=== PATIENT | male | born 1995 | race Caucasian/White ===

== ENCOUNTER 2018-12-06 12:24 | Emergency (ER) | payer OTHER ==
[2018-12-06 12:36] VITALS: RESP 18
[2018-12-06] MEDS ORDERED: PANTOPRAZOLE 40 MG/10 ML VIAL IVP STA (13:01)
[2018-12-06] MEDS ORDERED: ONDANSETRON 4 MG/2 ML VIAL IVP STA (13:01)
[2018-12-06] MEDS ORDERED: SODIUM CHLORIDE 0.9% 500 ML 500 ML IV STA (13:01)
--- NOTE | 2018-12-06 13:13 | ED ---
General Adult HPI - General Chief complaint: Abdominal Pain Stated complaint: abd pain Time Seen by Provider: 12/06/18 12:35 Source: patient, RN notes reviewed Mode of arrival: ambulatory Limitations: no limitations - History of Present Illness Initial comments: This is a 23-year-old male who presents emergency Department complaining of abdominal pain. Patient states she's had diarrhea for approximate one month. Patient states it is not are day. Patient states over the last 2 days he's been vomiting multiple times during the day. Patient also complains of epigastric abdominal pain. Patient states he's had no abdominal surgeries. Patient denies any recent drinking. Patient denies any chest pain difficult breathing shortest breath per patient denies any fever chills per patient denies any blood in the vomitus or in the stool. Patient denies any fevers. Patient does not have a primary medical care doctor. - Related Data Home Medications Medication Instructions Recorded Confirmed Famotidine [Pepcid AC] 10 mg PO DAILY 12/06/18 12/06/18 Allergies Allergy/AdvReac Type Severity Reaction Status Date / Time quetiapine [From Seroquel] AdvReac SEIZURE Verified 12/06/18 12:55 Review of Systems ROS Statement: Those systems with pertinent positive or pertinent negative responses have been documented in the HPI. ROS Other: All systems not noted in ROS Statement are negative. Past Medical History Past Medical History: Seizure Disorder History of Any Multi-Drug Resistant Organisms: MRSA Date of last positivie culture/infection: 2014 MDRO Source:: buttocks Past Surgical History: No Surgical Hx Reported Past Psychological History: Anxiety, Bipolar, Depression Smoking Status: Current every day smoker Past Alcohol Use History: None Reported Past Drug Use History: None Reported General Exam - General Exam Comments Initial Comments: GENERAL: Patient is well-developed and well-nourished. Patient is nontoxic and well- hydrated and is in mild distress. ENT: Neck is soft and supple. No significant lymphadenopathy is noted. Oropharynx is clear. Moist mucous membranes. Neck has full range of motion without eliciting any pain. EYES: The sclera were anicteric and conjunctiva were pink and moist. Extraocular movements were intact and pupils were equal round and reactive to light. Eyelids were unremarkable. PULMONARY: Unlabored respirations. Good breath sounds bilaterally. No audible rales rhonchi or wheezing was noted. CARDIOVASCULAR: There is a regular rate and rhythm without any murmurs gallops or rubs. ABDOMEN: Mild epigastric abdominal pain no rebound or guarding. No palpable organomegaly was noted. There is no palpable pulsatile mass. SKIN: Skin is clear with no lesions or rashes and otherwise unremarkable. NEUROLOGIC: Patient is alert and oriented x3. Cranial nerves II through XII are grossly intact. Motor and sensory are also intact. Normal speech, volume and content. Symmetrical smile. MUSCULOSKELETAL: Normal extremities with adequate strength and full range of motion. No lower extremity swelling or edema. No calf tenderness. LYMPHATICS: No significant lymphadenopathy is noted PSYCHIATRIC: Normal psychiatric evaluation. Limitations: no limitations Course Vital Signs 12/06/18 12:33 Temperature 98.1 F Pulse Rate 70 Respiratory 18 Rate Blood Pressure 117/77 O2 Sat by Pulse 98 Oximetry Medical Decision Making - Medical Decision Making Ultrasound showed no signs of acute cholecystitis - Lab Data Result diagrams: 12/06/18 13:15 12/06/18 13:15 Lab Results 12/06/18 12/06/18 12/06/18 Range/Units 13:15 13:15 13:43 WBC 16.6 H (3.8-10.6) k/uL RBC 5.63 (4.30-5.90) m/uL Hgb 17.0 (13.0-17.5) gm/dL Hct 51.6 (39.0-53.0) % MCV 91.7 (80.0-100.0) fL MCH 30.2 (25.0-35.0) pg MCHC 32.9 (31.0-37.0) g/dL RDW 13.6 (11.5-15.5) % Plt Count 170 (150-450) k/uL Neutrophils % 88 % Lymphocytes % 6 % Monocytes % 3 % Eosinophils % 1 % Basophils % 0 % Neutrophils # 14.6 H (1.3-7.7) k/uL Lymphocytes # 1.1 (1.0-4.8) k/uL Monocytes # 0.5 (0-1.0) k/uL Eosinophils # 0.2 (0-0.7) k/uL Basophils # 0.1 (0-0.2) k/uL Sodium 139 (137-145) mmol/L Potassium 4.2 (3.5-5.1) mmol/L Chloride 104 (98-107) mmol/L Carbon Dioxide 23 (22-30) mmol/L Anion Gap 12 mmol/L BUN 14 (9-20) mg/dL Creatinine 1.06 (0.66-1.25) mg/dL Est GFR (CKD-EPI)AfAm >90 (>60 ml/min/1.73 sqM) Est GFR (CKD-EPI)NonAf >90 (>60 ml/min/1.73 sqM) Glucose 92 (74-99) mg/dL Calcium 10.3 H (8.4-10.2) mg/dL Total Bilirubin 1.1 (0.2-1.3) mg/dL AST 41 (17-59) U/L ALT 38 (21-72) U/L Alkaline Phosphatase 74 (38-126) U/L Total Protein 8.1 (6.3-8.2) g/dL Albumin 5.1 H (3.5-5.0) g/dL Amylase 59 (30-110) U/L Lipase 73 (23-300) U/L Urine Color Yellow Urine Appearance Clear (Clear) Urine pH 6.0 (5.0-8.0) Ur Specific [place] 1.012 (1.001-1.035) Urine Protein Negative (Negative) Urine Glucose (UA) Negative (Negative) Urine Ketones Trace H (Negative) Urine Blood Negative (Negative) Urine Nitrite Negative (Negative) Urine Bilirubin Negative (Negative) Urine Urobilinogen <2.0 (<2.0) mg/dL Ur Leukocyte Esterase Negative (Negative) Disposition Clinical Impression: Epigastric abdominal pain Disposition: HOME SELF-CARE Instructions (If sedation given, give patient instructions): Abdominal Pain (ED) Additional Instructions: Patient should take Pepcid twice a day Patient should follow-up with a primary medical care doctor. Is patient prescribed a controlled substance at d/c from ED?: No Referrals: None,Stated [Primary Care Provider] - 1-2 days Time of Disposition: 15:53
[2018-12-06 13:31] LABS: Basophils # (A) 0.1 k/uL (0-0.2); Basophils % (A) 0 %; Eosinophils # (A) 0.2 k/uL (0-0.7); Eosinophils % (A) 1 %; HCT 51.6 % (39.0-53.0); Lymphocytes # (A) 1.1 k/uL (1.0-4.8); Lymphocytes % (A) 6 %; MCH 30.2 pg (25.0-35.0); MCHC 32.9 g/dL (31.0-37.0); MCV 91.7 fL (80.0-100.0); Mean Platelet Volume 8.8; Monocytes # (A) 0.5 k/uL (0-1.0); Monocytes % (A) 3 %; Neutrophils # (A) 14.6 k/uL (1.3-7.7); Neutrophils % (A) 88 %; Platelet Count 170 k/uL (150-450); RBC 5.63 m/uL (4.30-5.90); RDW 13.6 % (11.5-15.5); WBC 16.6 k/uL (3.8-10.6)
[2018-12-06 13:41] LABS: ALT 38 U/L (21-72); AST 41 U/L (17-59); Albumin 5.1 g/dL (3.5-5.0); Alkaline Phosphatase 74 U/L (38-126); Amylase 59 U/L (30-110); Anion Gap 12 mmol/L; Blood Urea Nitrogen 14 mg/dL (9-20); Calcium 10.3 mg/dL (8.4-10.2); Carbon Dioxide 23 mmol/L (22-30); Chloride 104 mmol/L (98-107); Glucose 92 mg/dL (74-99); Lipase 73 U/L (23-300); Potassium 4.2 mmol/L (3.5-5.1); Sodium 139 mmol/L (137-145); Total Bilirubin 1.1 mg/dL (0.2-1.3); Total Protein 8.1 g/dL (6.3-8.2)
--- NOTE | 2018-12-06 14:05 | XR ---
EXAMINATION TYPE: XR KUB DATE OF EXAM: 12/06/2018 2:02 PM CLINICAL HISTORY: Abdominal pain for one month. Recent vomiting. TECHNIQUE: Two Upright KUB images of the abdomen are obtained. COMPARISON: None. FINDINGS: Gas is seen in nondistended stomach. Scattered gas is seen in non-distended small bowel loo ps. Gas and fecal material is seen in non-distended colon. There is no visceromegaly, pneumoperitoneu m, or abnormal calcification appreciated. The lung bases are clear and the osseous structures are int act. IMPRESSION: Overall nonobstructive bowel gas pattern.
[2018-12-06 14:10] LABS: Appearance,Urine Clear (Clear); Bilirubin,Urine Negative (Negative); Blood,Urine Negative (Negative); Color,Urine Yellow; Glucose,Urine (UA) Negative (Negative); Ketones,Urine Trace (Negative); Leukocyte Esterase,Urine Negative (Negative); Nitrite,Urine Negative (Negative); Protein,Urine Negative (Negative); Specific Gravity,Urine 1.012 (1.001-1.035); Urobilinogen,Urine <2.0 mg/dL (<2.0)
--- NOTE | 2018-12-06 15:34 | US ---
EXAMINATION TYPE: US gallbladder DATE OF EXAM: 12/06/2018 COMPARISON: NONE CLINICAL HISTORY: Pain. abd pain with N/V EXAM MEASUREMENTS: Liver Length: 14.7 cm Gallbladder Wall: 0.2 cm CBD: 0.4 cm Right Kidney: 10.5 x 5.5 x 6.4 cm Pancreas: not seen due to bowel gas Liver: wnl Gallbladder: once rolled LLD some internal debris noted in addition to a small nondependent nonshado wing anterior wall polyp = 0.4cm Evidence for sonographic Mixon's sign: no, but got meds for pain CBD: wnl Right Kidney: wnl IMPRESSION: 1. Nondependent 4 mm gallbladder polyp. Annual surveillance is recommended for polyps of ascites. No sonographic evidence of acute cholecystitis. Minimal biliary sludge. 2. Pancreas is not visualized due to overlying bowel gas.
[2018-12-06 16:15] VITALS: BP 115/79; PULSE 71; TEMP 98.8
== END 2018-12-06 16:14 | disposition home or self-care (01) ==
LOC: EC 12:24
DX: R10.13 Epigastric pain (principal); R19.7 Diarrhea, unspecified; R11.10 Vomiting, unspecified; F17.200 Nicotine dependence, unspecified, uncomplicated; Z79.899 Other long term (current) drug therapy; Z88.8 Allergy status to other drugs, medicaments and biological substances
CPT/HCPCS: 36415; 80053; 82150; 83690; 85025; 81003; 74018; 76705; 99284; 96374; 96375; 96361; J2405; C9113

== ENCOUNTER 2019-01-02 15:55 | Emergency (ER) | payer OTHER ==
[2019-01-02 16:04] VITALS: BP 138/70; PULSE 88; RESP 18; TEMP 98.4
--- NOTE | 2019-01-02 16:16 | ED ---
Back Pain HPI - General Chief Complaint: Back Pain/Injury Stated Complaint: back pain Time Seen by Provider: 01/02/19 16:04 Source: patient, RN notes reviewed Limitations: no limitations - History of Present Illness Initial Comments: 23-year-old male presents emergency Department with chief complaint of low back pain. Patient states he is lifting her fridge yesterday. Pole in his right low back. He denies any bowel bladder incontinence or retention. He states the pain is better when he lays on his stomach. He denies any pain that radiates into his lower extremities denies any paresthesias. Patient states that he's had problems with the past. He did take some Tylenol Motrin last night and this morning. Denies any topical products no heat or ice - Related Data Home Medications Medication Instructions Recorded Confirmed Famotidine [Pepcid AC] 10 mg PO DAILY 12/06/18 12/06/18 Previous Rx's Medication Instructions Recorded Cyclobenzaprine [Flexeril] 10 mg PO TID PRN #15 tab 01/02/19 Ibuprofen [Motrin] 800 mg PO Q6HR #30 tab 01/02/19 Allergies Allergy/AdvReac Type Severity Reaction Status Date / Time quetiapine [From Seroquel] AdvReac SEIZURE Verified 01/02/19 16:04 Review of Systems ROS Statement: Those systems with pertinent positive or pertinent negative responses have been documented in the HPI. ROS Other: All systems not noted in ROS Statement are negative. Past Medical History Past Medical History: Seizure Disorder History of Any Multi-Drug Resistant Organisms: MRSA Date of last positivie culture/infection: 2014 MDRO Source:: buttocks Past Surgical History: No Surgical Hx Reported Past Psychological History: Anxiety, Bipolar, Depression Smoking Status: Current every day smoker Past Alcohol Use History: None Reported Past Drug Use History: None Reported General Exam Limitations: no limitations General appearance: alert, in no apparent distress Head exam: Present: atraumatic, normocephalic, normal inspection Eye exam: Present: normal appearance, PERRL, EOMI. Absent: scleral icterus, conjunctival injection, periorbital swelling ENT exam: Present: normal exam, normal oropharynx, mucous membranes moist Neck exam: Present: normal inspection, full ROM. Absent: tenderness, meningismus, lymphadenopathy Respiratory exam: Present: normal lung sounds bilaterally. Absent: respiratory distress, wheezes, rales, rhonchi, stridor Cardiovascular Exam: Present: regular rate, normal rhythm, normal heart sounds. Absent: systolic murmur, diastolic murmur, rubs, gallop, clicks GI/Abdominal exam: Present: soft, normal bowel sounds. Absent: distended, tenderness, guarding, rebound, rigid Extremities exam: Present: other (Bilateral lower extremity strength equal neurovascular intact) Back exam: Present: full ROM (Mild discomfort), tenderness (Right lower lumbar), paraspinal tenderness. Absent: vertebral tenderness Neurological exam: Present: alert, oriented X3, CN II-XII intact, reflexes normal. Absent: motor sensory deficit Skin exam: Present: warm, dry, intact, normal color. Absent: rash Course Vital Signs 01/02/19 16:03 Temperature 98.4 F Pulse Rate 88 Respiratory 18 Rate Blood Pressure 138/70 O2 Sat by Pulse 99 Oximetry Medical Decision Making - Medical Decision Making 23-year-old male presented for low back pain. Patient is a lumbar strain he has no red flag symptoms neurologically intact. Patient will be discharged. Return parameters were discussed Disposition Clinical Impression: Strain of lumbar region Disposition: HOME SELF-CARE Condition: Stable Instructions (If sedation given, give patient instructions): Acute Low Back Pain (ED) Additional Instructions: Please return to the Emergency Department if symptoms worsen or any other concerns. Prescriptions: Cyclobenzaprine [Flexeril] 10 mg PO TID PRN #15 tab PRN Reason: Muscle Spasm Ibuprofen [Motrin] 800 mg PO Q6HR #30 tab Is patient prescribed a controlled substance at d/c from ED?: No Referrals: None,Stated [Primary Care Provider] - 1-2 days Time of Disposition: 16:16
== END 2019-01-02 16:20 | disposition home or self-care (01) ==
LOC: EC 15:55
DX: S39.012A Strain of muscle, fascia and tendon of lower back, initial encounter (principal); F17.200 Nicotine dependence, unspecified, uncomplicated; Z86.14 Personal history of Methicillin resistant Staphylococcus aureus infection; Z79.899 Other long term (current) drug therapy; Z88.8 Allergy status to other drugs, medicaments and biological substances; X50.0XXA Overexertion from strenuous movement or load, initial encounter
CPT/HCPCS: 99283

== ENCOUNTER 2019-04-19 10:59 | Emergency (ER) | payer MEDICARE, OTHER ==
[2019-04-19 11:06] VITALS: BP 114/70; RESP 16; TEMP 98
[2019-04-19] MEDS ORDERED: DEXAMETHASONE SOD PHOSPHATE 10 MG/ML 1 ML VIAL IM STA (11:52)
[2019-04-19] MEDS ORDERED: ACETAMINOPHEN TAB 500 MG TAB PO STA (11:52)
[2019-04-19] MEDS ORDERED: IPRATROPIUM-ALBUTEROL 3 ML NEB INHALATION STA (11:52)
[2019-04-19] MEDS ORDERED: IBUPROFEN 800 MG TAB PO STA (11:52)
[2019-04-19 12:18] VITALS: PULSE 81
--- NOTE | 2019-04-19 12:25 | ED ---
URI HPI - General Chief Complaint: Upper Respiratory Infection Stated Complaint: Chest cold Time Seen by Provider: 04/19/19 11:15 Source: patient, RN notes reviewed, old records reviewed Mode of arrival: ambulatory Limitations: no limitations - History of Present Illness Initial Comments: This is a 24-year-old male presents today for evaluation of cough sore throat difficulty breathing. Patient states he has recent sick contact in his brother who was diagnosed bronchitis. Patient has had fever and chills. Otherwise no travel history. No significant medical history takes no medications. Patient is a smoker. Denying current chest pain. No nausea vomiting no diarrhea. MD Complaint: fever, cough, sore throat -: days(s) Severity: moderate Severity scale (1-10): 6 Quality: sharp Consistency: intermittent Improves With: nothing Worsens With: deep breaths Context: sick contacts Associated Symptoms: fever, chills, nasal congestion, sore throat, cough, hoarseness Treatments Prior to Arrival: none - Related Data Home Medications Medication Instructions Recorded Confirmed D-Methorphan/PE/Acetaminophen 1 cap PO Q12H PRN 04/19/19 04/19/19 [Mucinex Fast-Max Congest-Head] Dm/PE/Acetaminophen/Doxylamine 2 tab PO DAILY PRN 04/19/19 04/19/19 [Akila-[place] Plus Day-Night Cp] Ibuprofen [Motrin] 800 mg PO Q6HR PRN 04/19/19 04/19/19 Allergies Allergy/AdvReac Type Severity Reaction Status Date / Time quetiapine [From Seroquel] AdvReac SEIZURE Verified 04/19/19 11:13 Review of Systems ROS Statement: Those systems with pertinent positive or pertinent negative responses have been documented in the HPI. ROS Other: All systems not noted in ROS Statement are negative. Past Medical History Past Medical History: Seizure Disorder History of Any Multi-Drug Resistant Organisms: MRSA Date of last positivie culture/infection: 2014 MDRO Source:: buttocks Past Surgical History: No Surgical Hx Reported Past Psychological History: ADD/ADHD, Anxiety, Bipolar, Depression Smoking Status: Current every day smoker Past Alcohol Use History: Occasional Past Drug Use History: Marijuana General Exam Limitations: no limitations General appearance: alert, in no apparent distress Head exam: Present: atraumatic, normocephalic, normal inspection Eye exam: Present: normal appearance, EOMI. Absent: scleral icterus, conjunctival injection, periorbital swelling ENT exam: Present: normal exam, mucous membranes moist. Absent: normal oropharynx (Patient's oropharynx does have erythema with exudate bilaterally) Neck exam: Present: normal inspection. Absent: tenderness, meningismus, lymphadenopathy Respiratory exam: Present: wheezes (Diffuse wheezing). Absent: respiratory distress, rales, rhonchi, stridor Cardiovascular Exam: Present: regular rate, normal rhythm, normal heart sounds. Absent: systolic murmur, diastolic murmur, rubs, gallop, clicks GI/Abdominal exam: Present: soft, normal bowel sounds. Absent: distended, tenderness, guarding, rebound, rigid Extremities exam: Present: normal inspection, full ROM, normal capillary refill. Absent: tenderness, pedal edema, joint swelling, calf tenderness Back exam: Present: normal inspection Neurological exam: Present: alert, oriented X3, CN II-XII intact Psychiatric exam: Present: normal affect, normal mood Skin exam: Present: warm, dry, intact, normal color. Absent: rash Course Vital Signs 04/19/19 04/19/19 04/19/19 11:03 12:09 12:18 Temperature 98.0 F Pulse Rate 101 H 79 81 Respiratory 16 Rate Blood Pressure 114/70 O2 Sat by Pulse 97 Oximetry - Reevaluation(s) Reevaluation #1: 04/19/19 12:24 Medical records reviewed Reevaluation #2: 04/19/19 12:24 Symptoms improved with medication here in the ER Medical Decision Making - Medical Decision Making 84 male with clinical strep throat also with upper respiratory infection we'll place on antibiotics, x-rays clear for pneumonia. Patient can be discharged home - Radiology Data Radiology results: report reviewed (Chest x-rays negative for acute disease, no pneumonia noted. No mass or infiltrate), image reviewed Disposition Clinical Impression: Upper respiratory tract infection, Pharyngitis Disposition: HOME SELF-CARE Condition: Good Instructions (If sedation given, give patient instructions): Upper Respiratory Infection (ED), Pharyngitis (ED) Is patient prescribed a controlled substance at d/c from ED?: No Referrals: None,Stated [Primary Care Provider] - 1-2 days
--- NOTE | 2019-04-19 12:44 | XR ---
EXAMINATION TYPE: XR chest 2V DATE OF EXAM: 04/19/2019 COMPARISON: NONE HISTORY: Cough TECHNIQUE: Frontal and lateral views of the chest are obtained. FINDINGS: There is no focal air space opacity, pleural effusion, or pneumothorax seen. Slight right hemidiaphragm elevation, a common finding that may be physiologic. The cardiac silhouette size is wi thin normal limits. The osseous structures are intact. IMPRESSION: No acute cardiopulmonary process.
== END 2019-04-19 13:15 | disposition home or self-care (01) ==
LOC: EC 10:59
DX: J06.9 Acute upper respiratory infection, unspecified (principal); J02.9 Acute pharyngitis, unspecified; F17.200 Nicotine dependence, unspecified, uncomplicated; Z88.8 Allergy status to other drugs, medicaments and biological substances; Z86.14 Personal history of Methicillin resistant Staphylococcus aureus infection
CPT/HCPCS: 94640; 71046; 99284; 96372; J1100

== ENCOUNTER 2019-05-01 13:00 | Emergency (ER) | payer MEDICARE ==
[2019-05-01 13:17] VITALS: TEMP 97.9
--- NOTE | 2019-05-01 13:54 | ED ---
Head Injury HPI - General Chief complaint: Head Injury Stated complaint: head injury/poss seizures Time Seen by Provider: 05/01/19 13:22 Source: patient, RN notes reviewed, old records reviewed Mode of arrival: wheelchair Limitations: no limitations - History of Present Illness Initial comments: This is a 24-year-old male to ER for evaluation. Patient resents today for evaluation regards to headache. Headache occurred of hitting himself in the head with a hammer he then hit his head on the ground because he became weak and lightheaded. Patient complaining of continued headache is a mild abrasion above left eyebrow are moist and he may have lost consciousness. Patient currently awake and alert states that he is having a pounding headache unable to go to work today. No blood thinners. He does have history of seizures no seizure activity. MD Complaint: head injury, head pain -: hour(s) Mechanism of Injury: unsure Location: frontal, occipital (left forehead abrasion) Loss of Consciousness: yes Previous Trauma to this Area: No Place: home Radiation: none Severity: moderate Consistency: constant Provoking factors: none known Associated Symptoms: syncope (Presyncopal event since injury) - Related Data Home Medications Medication Instructions Recorded Confirmed No Known Home Medications 05/01/19 05/01/19 Allergies/Adverse reactions: Allergies Allergy/AdvReac Type Severity Reaction Status Date / Time quetiapine [From Seroquel] AdvReac SEIZURE Verified 05/01/19 13:59 Review of Systems ROS Statement: Those systems with pertinent positive or pertinent negative responses have been documented in the HPI. ROS Other: All systems not noted in ROS Statement are negative. Past Medical History Past Medical History: Seizure Disorder History of Any Multi-Drug Resistant Organisms: MRSA Date of last positivie culture/infection: 2014 MDRO Source:: buttocks Past Surgical History: No Surgical Hx Reported Past Psychological History: ADD/ADHD, Anxiety, Bipolar, Depression Smoking Status: Current every day smoker Past Alcohol Use History: Occasional Past Drug Use History: Marijuana General Exam Limitations: no limitations General appearance: alert, in no apparent distress Head exam: Present: normocephalic, normal inspection. Absent: atraumatic (Left forehead abrasion) Eye exam: Present: normal appearance, PERRL, EOMI. Absent: scleral icterus, conjunctival injection, periorbital swelling ENT exam: Present: normal exam, mucous membranes moist Neck exam: Present: normal inspection. Absent: tenderness, meningismus, lymphadenopathy Respiratory exam: Present: normal lung sounds bilaterally. Absent: respiratory distress, wheezes, rales, rhonchi, stridor Cardiovascular Exam: Present: regular rate, normal rhythm, normal heart sounds. Absent: systolic murmur, diastolic murmur, rubs, gallop, clicks GI/Abdominal exam: Present: soft, normal bowel sounds. Absent: distended, tenderness, guarding, rebound, rigid Extremities exam: Present: normal inspection, full ROM, normal capillary refill. Absent: tenderness, pedal edema, joint swelling, calf tenderness Back exam: Present: normal inspection Neurological exam: Present: alert, oriented X3, CN II-XII intact Psychiatric exam: Present: normal affect, normal mood Skin exam: Present: warm, dry, intact, normal color. Absent: rash Course Vital Signs 05/01/19 13:13 Temperature 97.9 F Pulse Rate 74 Respiratory 20 Rate Blood Pressure 92/63 O2 Sat by Pulse 99 Oximetry - Reevaluation(s) Reevaluation #1: 05/01/19 13:54 Records reviewed Reevaluation #2: 05/01/19 13:54 One syncopal event here in the ER complaining of headache Medical Decision Making - Medical Decision Making 24 male the ER with head injury. CT brain C-spine and facial bones negative for traumatic injury patient can be discharged - Radiology Data Radiology results: report reviewed (CT brain C-spine fracture was negative for acute disease), image reviewed Disposition Clinical Impression: Closed head injury Disposition: HOME SELF-CARE Condition: Good Instructions (If sedation given, give patient instructions): Concussion (ED) Is patient prescribed a controlled substance at d/c from ED?: No Referrals: None,Stated [Primary Care Provider] - 1-2 days
--- NOTE | 2019-05-01 14:43 | CT ---
EXAMINATION TYPE: CT facial bones wo con DATE OF EXAM: 05/01/2019 COMPARISON: HISTORY: Head injury; possible seizures CT DLP: 829.8 mGycm Automated exposure control for dose reduction was used. TECHNIQUE: CT scan of the sinuses is performed without contrast, axial images are obtained, coronal r eformatted images are also reviewed. FINDINGS: There is near complete opacification of the right maxillary sinus and moderate mucosal thic kening of the left maxillary sinus that is severe. Severe mucosal thickening is also seen in the ethm oid sinuses and moderate of the frontal sinuses. There is severe mucosal thickening with inspissated secretions of the sphenoid sinus. Air-fluid levels within all sinuses are indicative of an acute comp onent. Mild leftward nasal septal deviation is seen. Mastoid air cells are well aerated. No mucoperio steal thickening is identified. No acute displaced facial bone fracture is seen. The nasal bone and n eusebio septum appear intact as do the zygomatic arches. Visualized portions of the brain will be discus sed in the CT brain dictation of the same date. Globes maintain a normal rounded morphology. Lenses a re in place. No pre or post septal soft tissue swelling. IMPRESSION: 1. No acute displaced facial bone fracture. 2. Severe pansinusitis with air-fluid levels indicating an acute component.
--- NOTE | 2019-05-01 14:46 | CT ---
EXAMINATION TYPE: CT brain abe wo con DATE OF EXAM: 05/01/2019 COMPARISON: None HISTORY: 24-year-old male Head injury; possible seizures CT DLP: 829.8 mGycm Automated exposure control for dose reduction was used. Technique: Examination of the head was done in axial plane without intravenous contrast. Coronal and sagittal reconstructions performed. CT of the cervical spine was obtained in axial plane without intravenous injection of contrast mater ial. Coronal and sagittal reformatted images were obtained from the axial views for evaluation of f ractures, spinal alignment and canal. FINDINGS: Head: There is no evidence of acute intracranial hemorrhage, acute ischemic changes, mass, mass-effect, or extra-axial fluid collection. There is no effacement of cerebral sulci or basal subarachnoid cister ns. There is no hydrocephalus. There is no midline shift. Murguia-white matter distinction is preserv ed. Prominent paranasal sinus opacification. Facial bones reported separately. Mastoid air cells appear w ell-pneumatized high riding right jugular bulb. No calvarial fracture. Cervical spine: The alignment of the cervical spine is normal on coronal and reformatted images. There is no cranial vertebral abnormality. Fracture of the cervical spine is not seen. Assessment of the spinal canal fro m C7-T1 and below is limited due to artifact from the patient's shoulders. Otherwise, no evidence of focal disk herniation. There is no central spinal canal stenosis. Sagittal and coronal reformatted images confirm above findings. COMBINED IMPRESSION: 1. No acute intracranial abnormality seen. 2. For acute fracture or malalignment of the cervical spine. 3. Facial bones reported separately.
[2019-05-01 16:14] VITALS: BP 110/60; PULSE 63; RESP 16
== END 2019-05-01 16:12 | disposition home or self-care (01) ==
LOC: EC 13:00
DX: S00.81XA Abrasion of other part of head, initial encounter (principal); F17.200 Nicotine dependence, unspecified, uncomplicated; Z88.8 Allergy status to other drugs, medicaments and biological substances; Z86.14 Personal history of Methicillin resistant Staphylococcus aureus infection; W22.8XXA Striking against or struck by other objects, initial encounter; W01.0XXA Fall on same level from slipping, tripping and stumbling without subsequent striking against object, initial encounter; Y92.009 Unspecified place in unspecified non-institutional (private) residence as the place of occurrence of the external cause
CPT/HCPCS: 70450; 70486; 72125; 99284

== ENCOUNTER 2019-07-15 20:48 | Emergency (ER) | payer MEDICARE, OTHER ==
[2019-07-15 21:02] VITALS: BP 130/76; PULSE 91; RESP 20; TEMP 98.1
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
--- NOTE | 2019-07-15 21:29 | XR ---
EXAMINATION TYPE: XR hand complete RT DATE OF EXAM: 07/15/2019 COMPARISON: NONE HISTORY: Pain and swelling TECHNIQUE: 3 views FINDINGS: There is some deformity of the fifth metacarpal consistent with an old fracture. I see no a cute fracture nor dislocation. Joint spaces are fairly normal. IMPRESSION: No acute abnormality of the right hand.
== END 2019-07-15 22:14 | disposition home or self-care (01) ==
LOC: EC 20:48
DX: S69.91XA Unspecified injury of right wrist, hand and finger(s), initial encounter (principal); L30.9 Dermatitis, unspecified; F17.200 Nicotine dependence, unspecified, uncomplicated; Z88.8 Allergy status to other drugs, medicaments and biological substances; W22.03XA Walked into furniture, initial encounter
CPT/HCPCS: 99283

== ENCOUNTER 2020-01-08 14:36 | Emergency (ER) | payer SELFPAY ==
[2020-01-08 14:39] VITALS: RESP 16; TEMP 98.2
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
--- NOTE | 2020-01-08 15:34 | XR ---
Chest x-ray with right RIBS HISTORY: Rib pain, trauma Frontal view of the chest, 4 views of the right ribs are submitted. Correlation to prior chest x-ray 04/19/2019 Chest x-ray is stable, there is no pneumothorax or pleural effusion. Heart is stable. There is no lanette dent displaced rib fracture. No evident airspace disease. IMPRESSION: No acute abnormality. Bone scan could be performed for increased sensitivity as indicated .
[2020-01-08] MEDS ORDERED: KETOROLAC 30 MG/ML 1 ML VIAL IM STA (15:40)
[2020-01-08 16:20] VITALS: BP 108/65; PULSE 97
== END 2020-01-08 16:20 | disposition home or self-care (01) ==
LOC: EC 14:36
DX: S39.011A Strain of muscle, fascia and tendon of abdomen, initial encounter (principal); R11.0 Nausea; F17.200 Nicotine dependence, unspecified, uncomplicated; Z88.8 Allergy status to other drugs, medicaments and biological substances; Z86.14 Personal history of Methicillin resistant Staphylococcus aureus infection; X50.0XXA Overexertion from strenuous movement or load, initial encounter
CPT/HCPCS: 71101; 96372; 99284; J1885

== ENCOUNTER 2020-03-24 19:39 | Emergency (ER) | payer MEDICARE ==
[2020-03-24 19:49] VITALS: PULSE 92; RESP 20; TEMP 98.1
--- NOTE | 2020-03-24 19:53 | ED ---
Male Urogenital HPI - General Chief complaint: Urogenital Stated complaint: urogenital Time Seen by Provider: 03/24/20 19:53 Source: patient, family Mode of arrival: ambulatory Limitations: no limitations - History of Present Illness Initial comments: Patient a 25-year-old male presenting to emergency with chief complaint of testicular pain. Patient states this started several days ago with gradual increase in severity. Patient reports most of his testicles feel "heavy". He denies any testicular enlargement, erythema, penile discharge. Patient denies any dysuria, increased urgency or frequency. Denies any abdominal pain, nausea or vomiting. Denies hematuria, hematochezia or melena. Denies any back and chest pain. Denies any concerns for STDs. Denies night sweats or chills. - Related Data Home Medications Medication Instructions Recorded Confirmed Acetaminophen Tab [Tylenol] 975 mg PO Q4H PRN 01/08/20 01/08/20 Ibuprofen [Motrin Ib] 400 mg PO Q8H PRN 01/08/20 01/08/20 Previous Rx's Medication Instructions Recorded Acetaminophen Tab [Tylenol Tab] 500 mg PO Q6H PRN #30 tablet 03/24/20 Ibuprofen [Motrin] 800 mg PO Q6HR #30 tab 03/24/20 Allergies Allergy/AdvReac Type Severity Reaction Status Date / Time quetiapine [From Seroquel] AdvReac SEIZURE Verified 03/24/20 19:48 Review of Systems ROS Statement: Those systems with pertinent positive or pertinent negative responses have been documented in the HPI. ROS Other: All systems not noted in ROS Statement are negative. Past Medical History Past Medical History: Seizure Disorder Additional Past Medical History / Comment(s): hernia History of Any Multi-Drug Resistant Organisms: MRSA Date of last positivie culture/infection: 2014 MDRO Source:: buttocks Past Surgical History: No Surgical Hx Reported Past Psychological History: ADD/ADHD, Anxiety, Bipolar, Depression Smoking Status: Current every day smoker Past Alcohol Use History: Occasional Past Drug Use History: Marijuana General Exam Limitations: no limitations General appearance: alert, in no apparent distress Head exam: Present: atraumatic, normocephalic, normal inspection Eye exam: Present: normal appearance, PERRL, EOMI Pupils: Present: normal accommodation ENT exam: Present: normal exam, normal oropharynx, mucous membranes moist Neck exam: Present: normal inspection, full ROM. Absent: tenderness Respiratory exam: Present: normal lung sounds bilaterally. Absent: respiratory distress, wheezes Cardiovascular Exam: Present: regular rate, normal rhythm, normal heart sounds GI/Abdominal exam: Present: soft. Absent: distended, tenderness exam: Present: normal inspection, testicular tenderness (Bilateral testicular tenderness), circumcision. Absent: urethral discharge, scrotal swelling, other (Negative Prehn sign) Extremities exam: Present: normal inspection, full ROM. Absent: tenderness Back exam: Present: normal inspection, full ROM. Absent: tenderness, CVA tenderness (R), CVA tenderness (L) Neurological exam: Present: alert, oriented X3 Psychiatric exam: Present: normal affect, normal mood Skin exam: Present: warm, dry, intact, normal color Course Vital Signs 03/24/20 19:45 Temperature 98.1 F Pulse Rate 92 Respiratory 20 Rate Blood Pressure 110/73 O2 Sat by Pulse 99 Oximetry Medical Decision Making - Medical Decision Making Patient is 25-year-old male presenting to emergency department with chief complaint of testicular pain. Exam patient is a bilateral testicular and wrist with no signs of erythema or swelling. No significant findings on the penis. Ultrasound of the scrotum reveals no significant findings. UA did reveal elevated red blood cells and moderate amounts of blood in the urine. Subsequently, a KUB was ordered which showed no findings of a renal stone. He does not have any flank tenderness. Patient was advised to follow-up with a urologist. He will be discharged with Tylenol or Motrin for pain control. Strict return parameters were thoroughly discussed with patient who is und erstanding and agreeable. Case discussed with physician. - Lab Data Lab Results 03/24/20 Range/Units 20:09 Urine Color Yellow Urine Appearance Clear (Clear) Urine pH 6.0 (5.0-8.0) Ur Specific [place] 1.020 (1.001-1.035) Urine Protein Negative (Negative) Urine Glucose (UA) Negative (Negative) Urine Ketones Negative (Negative) Urine Blood Moderate H (Negative) Urine Nitrite Negative (Negative) Urine Bilirubin Negative (Negative) Urine Urobilinogen <2.0 (<2.0) mg/dL Ur Leukocyte Esterase Negative (Negative) Urine RBC 114 H (0-5) /hpf Urine WBC 4 (0-5) /hpf Ur Squamous Epith Cells 1 (0-4) /hpf Urine Mucus Rare H (None) /hpf Disposition Clinical Impression: Hematuria, Testicular pain, unspecified Disposition: HOME SELF-CARE Condition: Stable Instructions (If sedation given, give patient instructions): Testicle Pain (ED), Scrotal Pain (ED) Additional Instructions: Follow-up with a urologist. Alternate between Tylenol and Motrin for pain control. Return to emergency department if symptoms worsen. Prescriptions: Ibuprofen [Motrin] 800 mg PO Q6HR #30 tab Acetaminophen Tab [Tylenol Tab] 500 mg PO Q6H PRN #30 tablet PRN Reason: Pain Is patient prescribed a controlled substance at d/c from ED?: No Referrals: None,Stated [Primary Care Provider] - 1-2 days Time of Disposition: 21:33
[2020-03-24 20:26] LABS: Appearance,Urine Clear (Clear); Bilirubin,Urine Negative (Negative); Blood,Urine Moderate (Negative); Color,Urine Yellow; Glucose,Urine (UA) Negative (Negative); Ketones,Urine Negative (Negative); Leukocyte Esterase,Urine Negative (Negative); Mucus,Urine Rare /hpf; Nitrite,Urine Negative (Negative); Protein,Urine Negative (Negative); RBC,Urine 114 /hpf (0-5); Squamous Epithelial Cell,Urine 1 /hpf (0-4); Urobilinogen,Urine <2.0 mg/dL (<2.0); WBC,Urine 4 /hpf (0-5)
--- NOTE | 2020-03-24 20:52 | US ---
EXAMINATION TYPE: US scrotum with doppler. Grayscale and color Doppler Duplex imaging performed of loren shaw scrotum. DATE OF EXAM: 03/24/2020 COMPARISON: NONE CLINICAL HISTORY: bilat testicular pain. Bilateral testicular pain. EXAM MEASUREMENTS: TESTICLES: Right Testicle: 4.4 x 2.7 x 2.1 cm Left Testicle: 4.2 x 2.7 x 2.3 cm EPIDIDYMIS HEAD: Right Epididymis: 0.7 x 0.7 x 1.0 cm Left Epididymis: 0.6 x 1.2 x 1.1 cm Doppler performed to assess for testicular vascularity; good bilateral color flow and waveforms are s een. Presence of hydroceles: right: 1.7 x 0.2 x 0.7 cm. left: 1.5 x 0.9 x 0.4 cm. Presence of varicoceles: Prominent vessels measure up to 2.8 mm on the left side. IMPRESSION: No evidence of testicular torsion or mass. Small bilateral hydroceles.
--- NOTE | 2020-03-24 21:22 | XR ---
EXAMINATION TYPE: XR KUB DATE OF EXAM: 03/24/2020 COMPARISON: 12/06/2018 HISTORY: Abdominal pain TECHNIQUE: 2 views upright FINDINGS: There is no sign of intestinal obstruction or pneumoperitoneum. Fecal pattern is normal. Sharifa ng bases are clear. There are no pathologic calcifications over the kidneys. IMPRESSION: Nonacute abdomen. No change.
[2020-03-24 21:44] VITALS: BP 112/78
== END 2020-03-24 21:44 | disposition home or self-care (01) ==
LOC: EC 19:39
DX: N50.819 Testicular pain, unspecified (principal); R31.9 Hematuria, unspecified; F17.200 Nicotine dependence, unspecified, uncomplicated; Z88.8 Allergy status to other drugs, medicaments and biological substances; Z86.14 Personal history of Methicillin resistant Staphylococcus aureus infection
CPT/HCPCS: 74018; 76870; 81001; 93975; 99284

== ENCOUNTER 2021-01-25 00:57 | Emergency (ER) | payer OTHER ==
[2021-01-25 01:02] VITALS: BP 105/70; PULSE 122; RESP 20; TEMP 98.1
--- NOTE | 2021-01-25 02:29 | ED ---
Psych HPI - General Chief Complaint: Psychiatric Symptoms Stated Complaint: Mental health Time Seen by Provider: 01/25/21 01:12 Source: patient, police Mode of arrival: ambulatory - Related Data Home Medications Medication Instructions Recorded Confirmed Acetaminophen Tab [Tylenol] 975 mg PO Q4H PRN 01/08/20 01/08/20 Ibuprofen [Motrin Ib] 400 mg PO Q8H PRN 01/08/20 01/08/20 Previous Rx's Medication Instructions Recorded Acetaminophen Tab [Tylenol Tab] 500 mg PO Q6H PRN #30 tablet 03/24/20 Ibuprofen [Motrin] 800 mg PO Q6HR #30 tab 03/24/20 Review of Systems ROS Statement: Those systems with pertinent positive or pertinent negative responses have been documented in the HPI. ROS Other: All systems not noted in ROS Statement are negative. Past Medical History Past Medical History: Seizure Disorder Additional Past Medical History / Comment(s): hernia History of Any Multi-Drug Resistant Organisms: MRSA Date of last positivie culture/infection: 2014 MDRO Source:: buttocks Past Surgical History: No Surgical Hx Reported Past Psychological History: ADD/ADHD, Anxiety, Bipolar, Depression Smoking Status: Current every day smoker Past Alcohol Use History: Occasional Past Drug Use History: Marijuana General Exam Limitations: no limitations Course Vital Signs 01/25/21 00:57 Temperature 98.1 F Pulse Rate 122 H Respiratory 20 Rate Blood Pressure 105/70 O2 Sat by Pulse 98 Oximetry Disposition Clinical Impression: Mood disorder Disposition: HOME SELF-CARE Condition: Good Instructions (If sedation given, give patient instructions): Mood Disorders (ED) Is patient prescribed a controlled substance at d/c from ED?: No Referrals: None,Stated [Primary Care Provider] - 1-2 days
== END 2021-01-25 02:45 | disposition home or self-care (01) ==
LOC: EC 00:57
DX: F39 Unspecified mood [affective] disorder (principal); F32.9 Major depressive disorder, single episode, unspecified; F17.200 Nicotine dependence, unspecified, uncomplicated; F12.90 Cannabis use, unspecified, uncomplicated
CPT/HCPCS: 82075; 99284

== ENCOUNTER 2021-11-21 06:08 | Emergency (ER) | payer SELFPAY ==
[2021-11-21 06:12] VITALS: TEMP 97.8
[2021-11-21] MEDS ORDERED: DIPH,PERTUS(ACELL)TETVAC-LF 0.5 ML VIAL IM ONE (06:14)
[2021-11-21] MEDS ORDERED: LIDOCAINE 1% INJ 10MG/ML (20 ML MDV) SQ STA (06:15)
[2021-11-21] MEDS: LIDOCAINE 2% INJ 20 MG/ML (20 ML MDV) SQ STA ×2 (07:01→07:20)
[2021-11-21] MEDS ORDERED: TOPICAL SKIN ADHESIVE 1 EACH AMP TOPICAL ONE (07:11)
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
--- NOTE | 2021-11-21 07:30 | CT ---
EXAM: CT Head Without Intravenous Contrast CLINICAL HISTORY: ITS.REASON CT Reason: head injury TECHNIQUE: Axial computed tomography images of the head/brain without intravenous contrast. CTDI is 45.2 mGy and DLP is 1036 mGy-cm. This CT exam was performed using one or more of the following dose reduction techniques: automated exposure control, adjustment of the mA and/or kV according to patient size, and/or use of iterative reconstruction technique. COMPARISON: 05/01/2019 FINDINGS: Brain: Unremarkable. No hemorrhage. No significant white matter disease. No edema. Ventricles: No acute findings. No ventriculomegaly. Bones/joints: Unremarkable. No acute fracture. Soft tissues: Frontal scalp laceration. Sinuses: Mucosal thickening left frontal sinus and ethmoid air cells. Mastoid air cells: Unremarkable as visualized. No mastoid effusion. IMPRESSION: 1. No acute intracranial pathology. 2. Frontal scalp laceration. EXAM: CT Cervical Spine Without Intravenous Contrast CLINICAL HISTORY: ITS.REASON CT Reason: head injury TECHNIQUE: Axial computed tomography images of the cervical spine without intravenous contrast. CTDI is 10.6 mGy and DLP is 268.3 mGy-cm. This CT exam was performed using one or more of the following dose reduction techniques: automated exposure control, adjustment of the mA and/or kV according to patient size, and/or use of iterative reconstruction technique. COMPARISON: 05/01/2019 FINDINGS: Vertebrae: Unremarkable. No acute fracture. Soft tissues: No acute findings. DISCS/SPINAL CANAL/NEURAL FORAMINA: C2-C3: No significant stenosis. C3-C4: No significant stenosis. C4-C5: No significant stenosis. C5-C6: No significant stenosis. C6-C7: No significant stenosis. C7-T1: No significant stenosis. IMPRESSION: No fracture or subluxation.
[2021-11-21 08:54] VITALS: BP 126/80; PULSE 82; RESP 18
== END 2021-11-21 08:49 | disposition other institution (70) ==
LOC: EC 06:08
DX: S01.81XA Laceration without foreign body of other part of head, initial encounter (principal); F17.200 Nicotine dependence, unspecified, uncomplicated; F12.90 Cannabis use, unspecified, uncomplicated; F15.90 Other stimulant use, unspecified, uncomplicated; W25.XXXA Contact with sharp glass, initial encounter; Y92.810 Car as the place of occurrence of the external cause
CPT/HCPCS: 12013; 70450; 72125; 99284

== ENCOUNTER 2021-11-21 10:26 | Emergency (ER) | payer MEDICARE, OTHER ==
[2021-11-21 10:38] VITALS: BP 123/75; PULSE 67; RESP 18; TEMP 97.8
--- NOTE | 2021-11-21 10:47 | ED ---
General Adult HPI - General Chief complaint: Psychiatric Symptoms Stated complaint: mental health/Correction clearance Time Seen by Provider: 11/21/21 10:32 Source: patient, police Mode of arrival: ambulatory Limitations: no limitations - History of Present Illness Initial comments: Dictation was produced using [employer] dictation software. please excuse any grammatical, word or spelling errors. Chief Complaint: 26-year-old male brought in by law enforcement for psychiatric clearance. History of Present Illness: A 6-year-old male who was just here in emergency department for prison clearance. Patient was arrested and started to show self harming behavior. He did strike his head caused a of laceration. Laceration was repaired with Steri-Strips and Dermabond. Patient was medically cleared. Patient was brought back for psychiatric clearance because of self harming behavior. The ROS documented in this emergency department record has been reviewed and confirmed by me. Those systems with pertinent positive or negative responses have been documented in the HPI. All other systems are other negative and/or noncontributory. PHYSICAL EXAM: General Impression: Alert, not in acute distress, handcuffed HEENT: extra-ocular movements intact, pupils equal and reactive to light bilaterally, mucous membranes moist. Cardiovascular: Heart regular rate and rhythm Chest: Able to complete full sentences, no retractions, no tachypnea Abdomen: abdomen soft, non-tender, non-distended, no organomegaly Musculoskeletal: Pulses present and equal in all extremities, no peripheral edema Motor: no focal deficits noted Neurological: CN II-XII grossly intact, no focal motor or sensory deficits noted Skin: Intact with no visualized rashes Psych: Normal affect and mood ED course: 26-year-old no presents emergency Department with law enforcement for psychiatric clearance. Vital signs upon arrival are within acceptable limits. Patient medically cleared for EPS evaluation. Patient evaluated by EPS and clear patient psychiatrically. Patient cleared for prison. - Related Data Home Medications Medication Instructions Recorded Confirmed Acetaminophen Tab [Tylenol] 975 mg PO Q4H PRN 01/08/20 01/08/20 Ibuprofen [Motrin Ib] 400 mg PO Q8H PRN 01/08/20 01/08/20 Previous Rx's Medication Instructions Recorded Acetaminophen Tab [Tylenol Tab] 500 mg PO Q6H PRN #30 tablet 03/24/20 Ibuprofen [Motrin] 800 mg PO Q6HR #30 tab 03/24/20 Allergies Allergy/AdvReac Type Severity Reaction Status Date / Time No Known Allergies Allergy Verified 11/21/21 10:36 Review of Systems ROS Statement: Those systems with pertinent positive or pertinent negative responses have been documented in the HPI. ROS Other: All systems not noted in ROS Statement are negative. Past Medical History Past Medical History: Seizure Disorder Additional Past Medical History / Comment(s): hernia History of Any Multi-Drug Resistant Organisms: MRSA Date of last positivie culture/infection: 2014 MDRO Source:: buttocks Past Surgical History: No Surgical Hx Reported Past Psychological History: ADD/ADHD, Anxiety, Bipolar, Depression Smoking Status: Current every day smoker Past Alcohol Use History: Occasional Past Drug Use History: Marijuana, Methamphetamine General Exam Limitations: no limitations Course Vital Signs 11/21/21 10:29 Temperature 97.8 F Pulse Rate 67 Respiratory 18 Rate Blood Pressure 123/75 O2 Sat by Pulse 99 Oximetry Medical Decision Making - Lab Data Lab Results 11/21/21 Range/Units 10:47 Urine Opiates Screen Not Detected (NotDetected) Ur Oxycodone Screen Not Detected (NotDetected) Urine Methadone Screen Not Detected (NotDetected) Ur Propoxyphene Screen Not Detected (NotDetected) Ur Barbiturates Screen Not Detected (NotDetected) U Tricyclic Antidepress Not Detected (NotDetected) Ur Phencyclidine Scrn Not Detected (NotDetected) Ur Amphetamines Screen Not Detected (NotDetected) U Methamphetamines Scrn Detected H (NotDetected) U Benzodiazepines Scrn Not Detected (NotDetected) Urine Cocaine Screen Not Detected (NotDetected) U Marijuana (THC) Screen Detected H (NotDetected) Disposition Clinical Impression: Encounter for psychiatric assessment Disposition: OTHER INSTITUTION NOT DEFINED Condition: Good Referrals: None,Stated [Primary Care Provider] - 1-2 days - Out of Hospital Transfer - Req. Specs Out of Hospital Transfer - Requested Specifics: Other Non-Acute (Correction)
[2021-11-21 11:11] LABS: Amphetamine Screen,Urine Not Detected (NotDetected); Barbiturate Screen,Urine Not Detected (NotDetected); Benzodiazepines Screen,Urine Not Detected (NotDetected); Cocaine Screen,Urine Not Detected (NotDetected); Methadone Screen, Urine Not Detected (NotDetected); Opiate Screen,Urine Not Detected (NotDetected); Oxycodone Screen, Urine Not Detected (NotDetected); Phencyclidine Screen,Urine Not Detected (NotDetected); Tricyclic Antidepressant,Urine Not Detected (NotDetected); Urn Cannabinoid Scrn Detected (NotDetected)
== END 2021-11-21 12:30 | disposition other institution (70) ==
LOC: EC 10:26
DX: Z04.6 Encounter for general psychiatric examination, requested by authority (principal); F17.200 Nicotine dependence, unspecified, uncomplicated
CPT/HCPCS: 80306; 82075; 99284